=== PATIENT | male | born 1965 | race Caucasian/White ===

== ENCOUNTER 2016-11-30 20:08 | Emergency (ER) | payer OTHER ==
[2016-11-30 20:11] VITALS: BP 100/77; PULSE 98; RESP 20; TEMP 98.7; O2SAT 96
[2016-11-30] MEDS ORDERED: LISI-515 PO (20:39)
[2016-11-30 21:20] VITALS: BP 114/77; PULSE 77; RESP 16; O2SAT 97
[2016-11-30] MEDS ORDERED: SODIUM CHLOR 0.9% 1000 ML INJ 1,000 ML IV SCH (21:55)
[2016-11-30] MEDS ORDERED: PANTOPRAZOLE SODIUM 40 MG VIAL IVP ONE (22:00)
[2016-11-30] MEDS ORDERED: ONDANSETRON HCL 4 MG/2 ML VIAL IVP ONE (22:00)
[2016-11-30] MEDS ORDERED: DICYCLOMINE HCL 20 MG/2 ML VIAL IM ONE (22:00)
[2016-11-30] MEDS ORDERED: KETOROLAC TROMETHAMINE 60 MG/2 ML (IM) VIAL IM ONE (22:00)
--- NOTE | 2016-11-30 22:01 | PD ---
HPI Chief Complaint: GI Complaint Time Seen by Provider: 21:48 Travel History International Travel<30 days: No Contact w/Intl Traveler<30days: No Traveled to known affect area: No History of Present Illness HPI 51-year-old male complains of nausea and diarrhea abdominal cramping. Patient states that the symptoms started 2:00 in the morning. Patient states that abdominal cramping is intermittent diffuse over the abdomen. Patient denies any pain radiation. Patient denies any headache. Patient denies any chest pain or shortness of breath. Patient denies any coughing congestion. Patient denies blood or mucus in the stool. PFSH Past Medical History Diminished Hearing: No Hypertension: Yes Tetanus Vaccination: < 5 Years Influenza Vaccination: Yes ?: Not Past Surgical History Other Surgery: Yes (HERNIA REPAIR A CHILD) Social History Alcohol Use: No Tobacco Use: No Substance Use: No Allergies-Medications (Allergen,Severity, Reaction): Coded Allergies: No Known Allergies (Unverified , 11/30/16) Reported Meds & Prescriptions Reported Meds & Active Scripts Active Reported Lisinopril 20 Mg Tab 20 Mg PO DAILY Review of Systems General / Constitutional: No: Fever Eyes: No: Visual changes HENT: No: Headaches Cardiovascular: No: Chest Pain or Discomfort Respiratory: No: Shortness of Breath Gastrointestinal: Positive: Nausea, Abdominal Pain Genitourinary: No: Dysuria Musculoskeletal: No: Pain Skin: No Rash Neurologic: No: Weakness Psychiatric: No: Depression Endocrine: No: Polydipsia Hematologic/Lymphatic: No: Easy Bruising Physical Exam Narrative GENERAL: Well-nourished, well-developed patient. SKIN: Warm and dry. HEAD: Normocephalic. EYES: No scleral icterus. No injection or drainage. NECK: Supple, trachea midline. No JVD or lymphadenopathy. CARDIOVASCULAR: Regular rate and rhythm without murmurs, gallops, or rubs. RESPIRATORY: Breath sounds equal bilaterally. No accessory muscle use. GASTROINTESTINAL: Abdomen soft, nondistended. Patient has mild diffuse tenderness over the abdomen. No rebound tenderness. No mass. MUSCULOSKELETAL: No cyanosis, or edema. BACK: Nontender without obvious deformity. No CVA tenderness. Neurologic exam normal. Data Data Last Documented VS Vital Signs Date Time Temp Pulse Resp B/P Pulse Ox O2 Delivery O2 Flow Rate FiO2 11/30/16 23:33 16 97 Room Air 11/30/16 23:30 65 113/66 11/30/16 20:11 98.7 Orders Ketorolac Inj (Toradol Inj) (11/30/16 22:00) Complete Blood Count With Diff (11/30/16 21:55) Comprehensive Metabolic Panel (11/30/16 21:55) Lipase (11/30/16 21:55) Urinalysis - C+S If Indicated (11/30/16 21:55) Iv Access Insert/Monitor (11/30/16 21:55) Ecg Monitoring (11/30/16 21:55) Oximetry (11/30/16 21:55) Ondansetron Inj (Zofran Inj) (11/30/16 22:00) Pantoprazole Inj (Protonix Inj) (11/30/16 22:00) Sodium Chlor 0.9% 1000 Ml Inj (Ns 1000 M (11/30/16 21:55) Dicyclomine Inj (Bentyl Inj) (11/30/16 22:00) Ct Abd/Pel W Iv Contrast(Rout) (11/30/16 23:19) Iohexol 350 Inj (Omnipaque 350 Inj) (11/30/16 23:43) Labs Laboratory Tests Test 11/30/16 22:10 White Blood Count 10.2 TH/MM3 Red Blood Count 5.73 MIL/MM3 Hemoglobin 16.4 GM/DL Hematocrit 49.2 % Mean Corpuscular Volume 85.9 FL Mean Corpuscular Hemoglobin 28.7 PG Mean Corpuscular Hemoglobin 33.4 % Concent Red Cell Distribution Width 11.9 % Platelet Count 219 TH/MM3 Mean Platelet Volume 7.9 FL Neutrophils (%) (Auto) 84.8 % Lymphocytes (%) (Auto) 5.2 % Monocytes (%) (Auto) 5.6 % Eosinophils (%) (Auto) 0.8 % Basophils (%) (Auto) 3.6 % Neutrophils # (Auto) 8.6 TH/MM3 Lymphocytes # (Auto) 0.5 TH/MM3 Monocytes # (Auto) 0.6 TH/MM3 Eosinophils # (Auto) 0.1 TH/MM3 Basophils # (Auto) 0.4 TH/MM3 CBC Comment DIFF FINAL Differential Comment Sodium Level 138 MEQ/L Potassium Level 3.4 MEQ/L Chloride Level 104 MEQ/L Carbon Dioxide Level 25.7 MEQ/L Anion Gap 8 MEQ/L Blood Urea Nitrogen 20 MG/DL Creatinine 0.99 MG/DL Estimat Glomerular Filtration 80 ML/MIN Rate Random Glucose 114 MG/DL Calcium Level 8.4 MG/DL Total Bilirubin 0.6 MG/DL Aspartate Amino Transf 19 U/L (AST/SGOT) Alanine Aminotransferase 31 U/L (ALT/SGPT) Alkaline Phosphatase 54 U/L Total Protein 7.7 GM/DL Albumin 3.9 GM/DL Lipase 273 U/L [facility] Medical Decision Making Medical Screen Exam Complete: Yes Emergency Medical Condition: Yes Interpretation(s) 23:15 PM. CBC within normal limit. 84 neutrophil. Potassium 3.4. BUN 20. Calcium 8.4. Differential Diagnosis Differential diagnosis including gastroenteritis, gastritis, PUD, pancreatitis, cholecystitis, colitis, UTI, pyelonephritis, appendicitis. Narrative Course 51-year-old male with nausea diarrhea abdominal cramping. Normal saline solution 1 L IV bolus. Bentyl 20 mg IM. Protonix 40 mg IV. Zofran 4 mg IV. Diagnosis Primary Impression: Gastroenteritis Patient Instructions: General Instructions Additional Instructions: Clear fluid in the morning and advance diet tomorrow afternoon. Take medications as needed. Follow-up with personal physician. Return if persistent problem or worse. Med/Other Pt SpecificInfo: Prescription(s) given Scripts Diphenoxylate-Atropine (Lomotil)2.5-0.025 Mg Tab1 Tab PO Q6H PRN (DIARRHEA) #10 TAB Ref 0 Prov:Wilmer Mcgregor MD 12/01/16 Ondansetron Odt (Zofran Odt)4 Mg Tab4 Mg SL Q6HR PRN (Nausea/Vomiting) #10 TAB Ref 0 Prov:Wilmer Mcgregor MD 12/01/16 Dicyclomine (Bentyl)20 Mg Tab20 Mg PO TID #15 TAB Ref 0 Prov:Wilmer Mcgregor MD 12/01/16 Disposition: 01 DISCHARGE HOME Condition: Stable Wilmer Mcgregor MD Nov 30, 2016 22:01
[2016-11-30 22:18] LABS: AUTOMATED NEUTROPHIL # 8.6 TH/MM3 (1.8-7.7); BASOPHIL # 0.4 TH/MM3 (0-0.2); BASOPHIL % 3.6 % (0.0-2.0); EOSINOPHIL # 0.1 TH/MM3 (0-0.4); EOSINOPHIL % 0.8 % (0.0-4.0); HEMATOCRIT 49.2 % (39.0-51.0); HEMO FLAGS DIFF FINAL; LYMPH % 5.2 % (9.0-44.0); LYMPHOCYTE # 0.5 TH/MM3 (1.0-4.8); MEAN CELL VOLUME 85.9 FL (80.0-100.0); MEAN CORPUSCULAR HEMOGLOBIN 28.7 PG (27.0-34.0); MEAN CORPUSCULAR HGB CONC 33.4 % (32.0-36.0); MONO % 5.6 % (0.0-8.0); NEUT % 84.8 % (16.0-70.0); PLATELET COUNT 219 TH/MM3 (150-450); RED BLOOD COUNT 5.73 MIL/MM3 (4.50-5.90); RED CELL DISTRIBUTION WIDTH 11.9 % (11.6-17.2); WHITE BLOOD COUNT 10.2 TH/MM3 (4.0-11.0)
[2016-11-30 22:26] LABS: CHLORIDE 104 MEQ/L (98-107); POTASSIUM 3.4 MEQ/L (3.5-5.1); SODIUM (NA) 138 MEQ/L (136-145)
[2016-11-30 22:30] LABS: ANION GAP 8 MEQ/L (5-15); BICARBONATE 25.7 MEQ/L (21.0-32.0); BLOOD UREA NITROGEN 20 MG/DL (7-18)
[2016-11-30 22:33] LABS: ALT (GPT) 31 U/L (12-78); AST (GOT) 19 U/L (15-37); GLOMERULAR FILTRATION RATE 80 ML/MIN (>89)
[2016-11-30 22:35] LABS: TOTAL BILIRUBIN ADULT 0.6 MG/DL (0.2-1.0)
[2016-11-30 22:36] LABS: ALKALINE PHOSPHATASE 54 U/L (45-117)
[2016-11-30 23:30] VITALS: BP 113/66; PULSE 65; RESP 16; O2SAT 97
[2016-11-30 23:33] VITALS: RESP 16; O2SAT 97
[2016-11-30] MEDS ORDERED: IOHEXOL 350 MG/ML 10 ML VIAL (for RAD DIAG) IV ONE (23:43)
--- NOTE | 2016-11-30 23:57 | RADHPO ---
EXAM DATE/TIME: 11/30/2016 23:34 [facility] COMPARISON: No previous studies available for comparison. INDICATIONS : Diffuse abdominal pain today. IV CONTRAST: 100 cc Omnipaque 350 (iohexol) IV ORAL CONTRAST: No oral contrast ingested. RADIATION DOSE: 8.38 CTDIvol (mGy) MEDICAL HISTORY : None SURGICAL HISTORY : Hernia repair as child. ENCOUNTER: Initial ACUITY: 1 day PAIN SCALE: 8/10 LOCATION: diffuse abdomen TECHNIQUE: Volumetric scanning of the abdomen and pelvis was performed. Using automated exposure control and ad justment of the mA and/or kV according to patient size, radiation dose was kept as low as reasonably achievable to obtain optimal diagnostic quality images. FINDINGS: LOWER LUNGS: The visualized lower lungs are clear. LIVER: There are several subcentimeter hypodensities of the right hepatic lobe that measure up to 9 mm in si ze. No intrahepatic biliary distention. CT appearance of the gallbladder within normal limits. SPLEEN: Normal size without lesion. PANCREAS: Within normal limits. KIDNEYS: There are bilateral renal cysts and measure up to 3.5 cm on the right and 2.4 cm on the left. No ston e or hydronephrosis/hydroureter. ADRENAL GLANDS: Within normal limits. VASCULAR: There is no aortic aneurysm. BOWEL/MESENTERY: The stomach, small bowel, and colon demonstrate no acute abnormality. There is no free intraperitone al air or fluid. The appendix is well-visualized and normal. ABDOMINAL WALL: Tiny umbilical hernia containing fat only. RETROPERITONEUM: There is no lymphadenopathy. BLADDER: No wall thickening or mass. REPRODUCTIVE: Within normal limits. INGUINAL: There is no lymphadenopathy or hernia. MUSCULOSKELETAL: Within normal limits for patient age. CONCLUSION: 1. No acute abnormality demonstrated. 2. Several subcentimeter hypodensities of the liver that are most likely cysts or other benign struct ures. There are also bilateral renal cysts. 3. Tiny fat containing umbilical hernia. Jim Chacon MD on November 30, 2016 at 23:53 Board Certified Radiologist. This report was verified electronically.
[2016-12-01 00:15] VITALS: BP 112/77; PULSE 81; RESP 16; O2SAT 97
[2016-12-01] MEDS ORDERED: ZOFR4TAB3 SL (00:21)
[2016-12-01] MEDS ORDERED: BENT20TA PO (00:21)
[2016-12-01] MEDS ORDERED: LOMO2.5T PO (00:21)
[2016-12-01 00:36] LABS: BLOOD, URINE NEG (NEG); GLUCOSE,URINE NEG (NEG); KETONE, URINE 15 mg/dL (NEG); NITRITE,URINE NEG (NEG); PH, URINE 5.5 (5.0-8.5)
[2016-12-01 00:40] LABS: URINE COLOR YELLOW (YELLW/STRAW)
[2016-12-01 00:41] LABS: COMMENT (UR) CULT NOT INDICATED; CULTURE IF INDICATED CULT NOT INDICATED; RBC, URINE 0-2 /hpf (0-3); SQUAMOUS EPITHELIAL CELL URINE 0-5 /hpf (0-5); WBC, URINE 0-2 /hpf (0-5)
== END 2016-12-01 00:35 | disposition home or self-care (01) ==
LOC: PHED 20:08
DX: K52.9 Noninfective gastroenteritis and colitis, unspecified (principal); I10 Essential (primary) hypertension
CPT/HCPCS: 74177; 80053; 81001; 83690; 85025; 96361; 96372; 96374; 96375; 99284; C9113; J0500; J2405; J7030; Q9967